=== PATIENT | male | born 1975 | race Caucasian/White ===

== ENCOUNTER 2020-08-08 08:52 | Emergency (ER) | payer SELFPAY ==
[~2020-08-08] VITALS: Ht 160 cm; Wt 72.7 kg
[2020-08-08 09:01] VITALS: BP 118/71; TEMP 98.1
[2020-08-08] MEDS ORDERED: NORCO 325 MG-51 TAB PO (09:57)
[2020-08-08 10:27] VITALS: PULSE 65
== END 2020-08-08 10:27 | disposition home or self-care (01) ==
LOC: COL.ER 08:52
DX: M79.671 Pain in right foot (principal); F17.210 Nicotine dependence, cigarettes, uncomplicated

== ENCOUNTER 2023-03-24 01:56 | Emergency (ER) | payer SELFPAY ==
[~2023-03-24] VITALS: Ht 160 cm; Wt 61.4 kg
[~2023-03-24 01:56] MED LIST: NORCO 325 MG-51 TAB PO
[2023-03-24] MEDS ORDERED: Cyclobenzaprine 10 MG TAB PO ONE (02:45)
[2023-03-24] MEDS ORDERED: Ketorolac 30 MG/ML VIAL IM ONE (02:45)
[2023-03-24 03:28] VITALS: BP 156/91; PULSE 100; TEMP 97.6
== END 2023-03-24 03:28 | disposition home or self-care (01) ==
LOC: COL.ER 01:56
DX: S13.4XXA Sprain of ligaments of cervical spine, initial encounter (principal); R07.9 Chest pain, unspecified; V89.2XXA Person injured in unspecified motor-vehicle accident, traffic, initial encounter; Y92.410 Unspecified street and highway as the place of occurrence of the external cause
CPT/HCPCS: J1885